=== PATIENT | male | born 1995 | race Two or more races ===

== ENCOUNTER 2018-12-14 05:09 | Emergency (ER) | payer SELFPAY ==
[~2018-12-14] VITALS: Ht 170.2 cm; Wt 113.4 kg
[2018-12-14 05:12] VITALS: BP 160/110
[2018-12-14] MEDS ORDERED: NEOMY/BACITR/POLYMYXIN OINT PACKET. TP ONE (05:45)
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
[2018-12-14] MEDS ORDERED: IBUPROFEN 600 MG TABLET. PO ONE (06:30)
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
== END 2018-12-14 06:55 | disposition home or self-care (01) ==
LOC: ER 05:09
DX: S02.2XXA Fracture of nasal bones, initial encounter for closed fracture (principal); S60.042A Contusion of left ring finger without damage to nail, initial encounter; S00.83XA Contusion of other part of head, initial encounter; S20.229A Contusion of unspecified back wall of thorax, initial encounter; M25.522 Pain in left elbow; F10.20 Alcohol dependence, uncomplicated; Y90.9 Presence of alcohol in blood, level not specified; Y08.89XA Assault by other specified means, initial encounter; Y93.39 Activity, other involving climbing, rappelling and jumping off; Y92.89 Other specified places as the place of occurrence of the external cause; Y99.8 Other external cause status
CPT/HCPCS: 70450; 70486; 72125; 73080; 73130; 99284-25

== ENCOUNTER 2020-08-03 21:09 | Emergency (ER) | payer OTHER ==
[~2020-08-03] VITALS: Ht 175.3 cm; Wt 136.3 kg
--- NOTE | 2020-08-03 22:15 | PHYS DOC ---
General Adult EDM: Chief Complaint: ABDOMINAL PAIN HPI: HPI: Patient is a 25 year old male who presents with complaints of it hurts to pee and blood in urine for approximately the past month. Patient reports that he is uncertain exactly which day it started but he noticed his urine was dark and he thought it might be blood, he also noticed some low abdomen pressure near the base of his penis each time he urinated. Patient states that he is currently not nauseated however states that he vomited x4 today throughout the day stating that nothing came up it was just dry heaving. Patient also states he has intermittent low back pain and is concerned that he may have a kidney stone h owever patient denies any back pain at this time. Patient denies any recent fever chills, denies visual changes, denies nasal congestion cough or shortness of breath. Patient denies any chest pain or swelling of his extremities. Patient denies any diarrhea or constipation or blood in his stools. Patient denies any skin rashes, headaches, focal weaknesses, or sensory changes. P atient denies any increased thirst or increased urination, denies any swelling of his glands, patient denies any depressions, anxieties, homicidal or suicidal ideations. (KATYA LI APRN) Review of Systems: Review of Systems: Constitutional: Denies fever or chills. Eyes: Denies change in visual acuity. HENT: Denies nasal congestion or sore throat. Respiratory: Denies cough or shortness of breath. Cardiovascular: Denies chest pain or edema. GI: Complains of low pelvic abdominal pain/pressure that increases during urination. Denies diarrhea, constipation, blood in stools. : Complains of pressure during urination with dark red urine. Musculoskeletal: Denies back pain or joint pain. Integument: Denies rash. Neurologic: Denies headache, focal weakness or sensory changes. Endocrine: Denies polyuria or polydipsia. Lymphatic: Denies swollen glands. Psychiatric: Denies depression or anxiety. Denies homicidal or suicidal ideation. (KATYA LI APRN) Heart Score: Risk Factors: Risk Factors: DM, Current or recent (<one month) smoker, HTN, HLP, family history of CAD, obesity. Risk Scores: Score 0 - 3: 2.5% MACE over next 6 weeks - Discharge Home Score 4 - 6: 20.3% MACE over next 6 weeks - Admit for Clinical Observation Score 7 - 10: 72.7% MACE over next 6 weeks - Early Invasive Strategies (KATYA LI APRN) Current Medications: Patient denies taking prescription medications or [id number] medications at home. (KATYA LI APRN) Allergies: Allergies: Patient denies allergies to medication, patient denies seasonal allergies. (KATYA LI APRN) Physical Exam: PE: Constitutional: Well developed, well nourished, no acute distress, non-toxic appearance. HENT: Normocephalic, atraumatic, bilateral external ears normal, oropharynx moist, no oral exudates, nose normal. Eyes: PERRLA, EOMI, conjunctiva normal, no discharge. Neck: Normal range of motion, no tenderness, supple, no stridor. Cardiovascular:Heart rate regular rhythm, no murmur Lungs & Thorax: Bilateral breath sounds clear to auscultation Abdomen: Bowel sounds normal all 4 quadrants auscultation, soft, no masses, no pulsatile masses. Pain to palpation low pelvic area near the symphysis pubis to palpation without guarding or rebound tenderness. Skin: Warm, dry, no erythema, no rash. Back: No tenderness, no CVA tenderness. Extremities: No tenderness, no cyanosis, no clubbing, ROM intact, no edema. Neurologic: Alert and oriented X 3, normal motor function, normal sensory function, no focal deficits noted. Psychologic: Affect normal, judgement normal, mood normal. (KATYA LI APRN) EKG: EKG: [] (KATYA LI APRN) Radiology/Procedures: Radiology/Procedures: [] (KATYA LI APRN) Radiology/Procedures: [facility] [address] [place] [address] IMAGING REPORT Signed PATIENT: DAE GONSALES AACCOUNT: [id number] : 1995 LOCATION: ER AGE: 25 SEX: M EXAM STATUS: REG ER ORD. PHYSICIAN: KATYA LI APRN REASON: LOW ABDOMEN PAIN PROCEDURE: CT ABD PELV W/ IV CONTRST ONLY Exam: CT abdomen/pelvis with intravenous contrast Indication: Lower abdominal pain Comparison: None Technique: Helical CT imaging performed of the abdomen and pelvis after the intravenous administration of 75 mL Omnipaque 300 contrast. Sagittal and coronal reformats were obtained. One or more of the following individualized dose reduction techniques were utilized for this examination: 1. Automated exposure control 2. Adjustment of the mA and/or kV according to patient size 3. Use of iterative reconstruction technique. Findings: Lower chest: Lung bases are clear. The heart is normal in size. Liver: The liver is mildly enlarged measuring 20.8 cm in length. Normal morphology. No focal liver lesion. Gallbladder/Biliary Tree: Normal. Pancreas: Normal. Spleen: The spleen is enlarged measuring 17 cm in length. Adrenal Glands: Normal. Kidneys/Ureters/Bladder: Kidneys, ureters, and bladder are normal. Reproductive Organs: Prostate gland is normal. Stomach, small bowel, and colon: Unremarkable. Stomach, small bowel, and right hemicolon are decompressed, limiting evaluation. The appendix is normal. Vasculature: Normal. Lymph Nodes: No lymphadenopathy. Peritoneum and retroperitoneum: There is a moderate volume of ascites in the abdomen and pelvis. Some of this is mildly complex appearing with induration of fat along the right paracolic gutter, and some nodular appearance in the left upper quadrant (image 27, series 2). No free air. Bones: No acute osseous abnormality. Impression: 1. Moderate volume of ascites in the abdomen and pelvis, of unclear etiology. Some of this is mildly complex appearing with some induration of fat along the right paracolic gutter and some nodularity in the left upper quadrant. Malignant ascites is not excluded. Consider correlation with fluid sampling. 2. Mild hepatosplenomegaly. Electronically signed by: Alexandrea Ludwig MD (08/04/2020 12:24 AM) [id number] DICTATED and SIGNED BY: ALEXANDREA LUDWIG MD DATE: 08/04/20 0024 (KAYLEIGH PATEL DO) Course & Med Decision Making: Course & Med Decision Making Pertinent Labs and Imaging studies reviewed. (See chart for details) 25-year-old male patient presented emergency department complaining of dark red urine with low abdomen pain during urination for the past month. Patient states that he feared he had kidney stones, complaining of intermittent off-and-on low back pain, however patient does not have back pain at this time. Patient is uncircumcised, related to this patient work-up for urinary tract infection. Labs were ordered urine was not infected. Patient's white blood cell count elevated at 14.6, a CAT scan of the abdomen pelvis with IV contrast was ordered. This case was discussed with ER attending Dr. Patel who took over care at this time. (KATYA LI APRN) Course & Med Decision Making Patient is a 25-year-old male who was evaluated in the ER due to abdominal pain for months. Patient is an alcoholic. CT scan of the abdomen pelvic show evidence of ascites. It was recommended patient will be admitted for further evaluation however he decided he want to go home. Patient was awake alert oriented, he left AGAINST MEDICAL ADVICE. (KAYLEIGH PATLE DO) Dragon Disclaimer: Dragon Disclaimer: This electronic medical record was generated, in whole or in part, using a voice recognition dictation system. (KATYA LI APRN) Departure Departure Impression: Primary Impression: Abdominal pain Additional Impression: Ascites Disposition: 07 AMA/ELOPED/LWBS Condition: STABLE Referrals: NO PCP (PCP) KATYA LI APRN Aug 03, 2020 22:15 KAYLEIGH PATEL DO Aug 04, 2020 03:05
[2020-08-03 22:23] LABS: BASO # 0.1 x10^3/uL (0.0-0.2); BASO % 0 % (0-3); EOS # 0.3 x10^3/uL (0.0-0.7); EOS % 2 % (0-3); HEMATOCRIT 41.4 % (39.0-53.0); LYMPH # 2.9 x10^3/uL (1.0-4.8); LYMPH % 20 % (24-48); MEAN CORPUSCULAR HEMOGLOBIN 33 pg (25-35); MEAN CORPUSCULAR HGB CONC 34 g/dL (31-37); MEAN CORPUSCULAR VOLUME 97 fL (79-100); MONO # 0.9 x10^3/uL (0.0-1.1); MONO % 6 % (0-9); NEUT # 10.4 x10^3/uL (1.8-7.7); NEUT % 72 % (31-73); PLATELET COUNT 208 x10^3/uL (140-400); RED BLOOD COUNT 4.26 x10^6/uL (4.30-5.70); RED CELL DISTRIBUTION WIDTH 16.6 % (11.5-14.5); WHITE BLOOD COUNT 14.6 x10^3/uL (4.0-11.0)
[2020-08-03 22:26] LABS: BILIRUBIN,URINE NEGATIVE (NEG); CLARITY,URINE CLEAR; COLOR,URINE YELLOW; NITRITE,URINE NEGATIVE (NEG); PH,URINE 5.5 (<5.0-8.0); PROTEIN,URINE NEGATIVE (NEG-TRACE)
[2020-08-03 22:32] LABS: BACTERIA,URINE 0 /HPF (0-FEW); RBC,URINE 0 /HPF (0-2); WBC,URINE RARE /HPF (0-4)
[2020-08-03 22:33] LABS: CALCIUM 7.7 mg/dL (8.5-10.1); CREATININE 0.8 mg/dL (0.7-1.3); GFR 116.9; POTASSIUM 3.5 mmol/L (3.5-5.1)
[2020-08-03 22:39] LABS: ALBUMIN 2.5 g/dL (3.4-5.0); ALBUMIN/GLOBULIN RATIO 0.6 (1.0-1.7); TOTAL BILIRUBIN 1.3 mg/dL (0.2-1.0)
[2020-08-03] MEDS ORDERED: CONTRAST GIVEN. MC PRN (23:30)
[2020-08-03] MEDS ORDERED: IOHEXOL 300 MG/ML 100ML VIAL. IV ONE (23:30)
--- NOTE | 2020-08-04 00:28 | RAD ---
Exam: CT abdomen/pelvis with intravenous contrast Indication: Lower abdominal pain Comparison: None Technique: Helical CT imaging performed of the abdomen and pelvis after the intravenous administration of 75 mL Omnipaque 300 contrast. Sagittal and coronal reformats were obtained. One or more of the following individualized dose reduction techniques were utilized for this examination: 1. Automated exposure control 2. Adjustment of the mA and/or kV according to patient size 3. Use of iterative reconstruction technique. Findings: Lower chest: Lung bases are clear. The heart is normal in size. Liver: The liver is mildly enlarged measuring 20.8 cm in length. Normal morphology. No focal liver lesion. Gallbladder/Biliary Tree: Normal. Pancreas: Normal. Spleen: The spleen is enlarged measuring 17 cm in length. Adrenal Glands: Normal. Kidneys/Ureters/Bladder: Kidneys, ureters, and bladder are normal. Reproductive Organs: Prostate gland is normal. Stomach, small bowel, and colon: Unremarkable. Stomach, small bowel, and right hemicolon are decompressed, limiting evaluation. The appendix is normal. Vasculature: Normal. Lymph Nodes: No lymphadenopathy. Peritoneum and retroperitoneum: There is a moderate volume of ascites in the abdomen and pelvis. Some of this is mildly complex appearing with induration of fat along the right paracolic gutter, and some nodular appearance in the left upper quadrant (image 27, series 2). No free air. Bones: No acute osseous abnormality. Impression: 1. Moderate volume of ascites in the abdomen and pelvis, of unclear etiology. Some of this is mildly complex appearing with some induration of fat along the right paracolic gutter and some nodularity in the left upper quadrant. Malignant ascites is not excluded. Consider correlation with fluid sampling. 2. Mild hepatosplenomegaly. Electronically signed by: Aleaxndrea Ludwig MD (08/04/2020 12:24 AM) [id number]
[2020-08-04 00:30] VITALS: BP 126/63
[2020-08-04] MEDS ORDERED: cefTRIAXone IV Push 1 GM VIAL. IVP ONE (01:30)
== END 2020-08-04 01:18 | disposition left against medical advice (07) ==
LOC: ER 21:09 → MERGE 21:09 → ER 08-04 01:18
DX: R18.8 Other ascites (principal); R16.2 Hepatomegaly with splenomegaly, not elsewhere classified
CPT/HCPCS: 36415; 74177; 80053; 81001; 83690; 85025; 99285; Q9967